=== PATIENT | female | born 1990 | race Caucasian/White ===

== ENCOUNTER 2021-07-07 21:13 | Emergency (ER) | payer OTHER, SELFPAY ==
--- NOTE | ~2021-07-07 | CT_ITS ---
EXAMINATION: CT abdomen pelvis wo con EXAM DATE: 07/07/2021 23:37 INDICATION: R/O Urolithiasis. Left Flank Pain X 9 Hrs. TECHNIQUE: Spiral CT of the abdomen and pelvis was performed without contrast. Axial, coronal and sag ittal images were reviewed. The dose-length product (DLP) for this examination was 1329.90 mGy-cm. The exposure was tailored according to patient size (auto mA exposure control), and iterative reconst ruction (ASIR) was used as additional dose reduction technique. There is no prior study for comparis on. FINDINGS: Bilateral kidney medullary regions are mildly dense, mild nephrocalcinosis. No ureteral sto iftikhar or hydronephrosis. Indeterminate 1.2 cm right renal lesion statistically most likely hemorrhagic cyst. MRI without and with contrast of the abdomen should be considered. The uterus is unremarkable. The bladder is unremarkable. The liver, spleen, adrenal glands and pancreas are unremarkable. Gal lbladder is unremarkable. No biliary obstruction. There is no retroperitoneal or pelvic lymphadenop athy. The appendix is not positively visualized. There is no pericecal inflammatory change to suggest appe ndicitis. Surgical changes along the greater curvature of the stomach which could be gastric sleeve . There is expected amount of colonic stool. No free intraperitoneal gas. The heart is normal in size. There are no pericardial or pleural effusions. The lung bases are unremarkable. There are n o osteoblastic or osteolytic lesions identified. IMPRESSION: 1. Bilateral medullary nephrocalcinosis. 2. Indeterminate right renal lesion; consider MRI abdomen without and with contrast. 3. No acute intra-abdominal findings. Reviewed, dictated and finalized at location A. [facility] IMPRESSION: 1. Bilateral medullary nephrocalcinosis. 2. Indeterminate right renal lesion; consider MRI abdomen without and with con trast. 3. No acute intra-abdominal findings.
[2021-07-07 21:33] VITALS: BP 120/86; PULSE 104; RESP 18; TEMP 37; O2SAT 98
[2021-07-07] MEDS: KETOROLAC 30 MG/ML VIAL (*BKC) IV PUSH (22:41)
[2021-07-07 22:42] LABS: Basophils Absolute Auto 0.1 K/mm3 (0.0-0.1); Basophils Percent Auto 0.5 % (0.2-1.2); Eosinophils Percent Auto 0.3 % (0-4.4); Hematocrit 38.6 % (37.0-47.0); Hemoglobin 12.4 g/dL (12.0-15.0); Immature Granulocyte Absolute 0.02 K/mm3 (0.00-0.031); Immature Granulocyte Percent A 0.2 % (0-0.5); Lymphocytes Absolute Auto 2.78 K/mm3 (0.9-3.2); Lymphocytes Percent Auto 27.9 % (18.3-44.2); Mean Corpuscular HGB Conc 32.1 g/dl (32-36); Mean Corpuscular Hemoglobin 27.4 pg (26-34); Mean Corpuscular Volume 85.2 fl (80-100); Mean Platelet Volume 9.4 fl (7.4-10.4); Monocytes Absolute Auto 0.8 K/mm3 (0.1-0.6); Monocytes Percent Auto 8.3 % (2.6-8.5); Neutrophils Absolute Auto 6.3 K/mm3 (1.3-6.7); Neutrophils Percent Auto 62.8 % (45.5-73.1); Platelet Count Result 404 k/mm3 (150-375); Red Blood Count 4.53 M/mm3 (4.2-5.4); Red Cell Distribution Width 13.2 % (11.5-14.5)
[2021-07-07] MEDS: SODIUM CHLORIDE 0.9% IV 1,000 ML 999 ML IV CONT (22:42)
[2021-07-07] MEDS: ONDANSETRON INJ 4 MG/2 ML VIAL IV PUSH (22:42)
--- NOTE | 2021-07-07 22:43 | ED.FEMALEGU ---
HPI - Female Genitourinary General Chief complaint: Urogenital-Female Stated complaint: flank pain Time Seen by Provider: 07/07/21 22:24 History of Present Illness HPI Narrative: 31-year-old female presents the emergency room with acute onset of left flank pain and difficulty urinating. Patient states pain began about 3:00 this afternoon and is radiating around to anterior torso. No history of kidney stones. Pain is associated with nausea. Related Data Allergies Allergy/AdvReac Type Severity Reaction Status Date / Time No Known Allergies Allergy Unverified 04/09/16 21:04 Review of Systems Review of Systems: CONSTITUTIONAL: Denies fever, chills, or sweats. EYES: Denies visual changes, redness, or discharge. ENT: Denies rhinorrhea, congestion, sore throat, or otalgia. CARDIOVASCULAR: Denies chest pain, palpitations, or edema. RESPIRATORY: Denies cough or dyspnea. GASTROINTESTINAL:Reports left flank pain and nausea. GENITOURINARY: Reports difficulty urinating. SKIN: Denies rash or itching. MUSCULOSKELETAL: Denies back pain, joint pain, or myalgia. NEUROLOGIC: Denies headache, numbness, dizziness, or weakness. PSYCHIATRIC: Denies anxiety or depression. Exam Narrative: GENERAL: Well-appearing, well-nourished, and in no acute distress. HEAD: Normocephalic, atraumatic. EYES: PERRLA and EOMI. ENT: Nares clear, no rhinorrhea or epistaxis. Mucous membranes moist. NECK: Supple. No adenopathy or masses. CHEST: Clear to auscultation. No respiratory distress. No wheezes rales or rhonchi HEART: Regular rate and rhythm. No murmur heard. Normal peripheral pulses. ABDOMEN: Soft, nontender, nondistended, normal active bowel sounds. Right CVA tenderness EXTREMITIES: Normal range of motion. No edema. SKIN: Warm, dry, no rash. NEURO: No focal deficits. Alert and oriented x3. PSYCH: Normal mood and affect. Course Course Emergency Course: 31-year-old female complaining of left flank pain with acute onset of this afternoon with accompanying nausea. Vital signs have been within normal limits slightly tachycardic. Given a liter of fluid Toradol and Zofran for suspected kidney stone. CBC CMP were within normal limits UA demonstrated bacteria. CT scan demonstrated no obstructing renal stones in either kidney. There was discussion of a 1.2cm lesion noted in the right kidney recommend MRI to rule out hemorrhagic cyst versus mass. Vital Signs Vital signs: Vital Signs Temperature 37.0 C 07/07/21 21:33 Pulse Rate 104 H 07/07/21 21:33 Respiratory Rate 18 07/07/21 21:33 Blood Pressure 120/86 07/07/21 21:33 Pulse Oximetry 98 07/07/21 21:33 Temperature 37.0 C 07/07/21 21:33 Pulse Rate 104 H 07/07/21 21:33 Respiratory Rate 18 07/07/21 21:33 Blood Pressure 120/86 07/07/21 21:33 Pulse Oximetry 98 07/07/21 21:33 MDM - Female Genitourinary MDM Narrative Medical decision making narrative: CT demonstrated no acute findings in the left kidney. Right kidney showed a nonobstructed kidney stone as well as a 1.2 cm mass in the upper kidney. Radiologist recommends MRI further evaluate for either hemorrhagic cyst or solid mass. Patient's UA was positive for bacteria and WBCs. Medical Records Attestation: I reviewed the patient's medical records. Lab Data Attestation: I reviewed the patient's lab results. Result diagrams: 07/07/21 22:37 07/07/21 22:37 Labs: Lab Results 07/07/21 07/07/21 07/07/21 Range/Units 22:37 22:37 22:50 WBC 10.0 (4.5-10.0) K/mm3 RBC 4.53 (4.2-5.4) M/mm3 Hgb 12.4 (12.0-15.0) g/dL Hct 38.6 (37.0-47.0) % MCV 85.2 (80-100) fl MCH 27.4 (26-34) pg MCHC 32.1 (32-36) g/dl RDW 13.2 (11.5-14.5) % Plt Count 404 H (150-375) k/mm3 MPV 9.4 (7.4-10.4) fl Immature Gran % (Auto) 0.2 (0-0.5) % Neut % (Auto) 62.8 (45.5-73.1) % Lymph % (Auto) 27.9 (18.3-44.2) % [place] % (Auto) 8.3 (2.6-8.5) % Eos % (Auto) 0.
[2021-07-07 22:59] LABS: Alanine Aminotransferase 20 U/L (4-35); Alkaline Phosphatase 70 U/L (38-126); Anion Gap 11 mmol/L (8-16); Aspartate Amino Transferase 32 U/L (14-36); Bilirubin,Total 0.6 mg/dL (0.2-1.3); Blood Urea Nitrogen 12 mg/dL (7-17); Calcium 9.8 mg/dL (8.4-10.2); Carbon Dioxide 25 mmol/L (22-30); Chloride 98 mmol/L (98-107); Estimated CRCL calculation 104 ml/min; Estimated Glomerular Filt Rate > 60; Glucose 89 mg/dL (65-110); Potassium 3.5 mmol/L (3.4-5.0); Sodium 134 mmol/L (137-145)
[2021-07-07 23:11] LABS: Add Urine Microscopic? YES; Appearance Urine Cloudy (Clear); Bacteria Urine 4+ /hpf; Bilirubin Urine Negative (Negative); Blood Urine Negative (Negative); Color Urine Yellow (Yellow); Glucose Urine UA Negative (Negative); Ketones Urine 1+ mg/dL (Negative); Leukocyte Esterase Ur Negative LEU/UL (Negative); Mucus Urine Few /lpf; Nitrate Urine Negative (Negative); Protein Urine 1+ mg/dL (Negative); Specific Grav Ur 1.029 (1.001-1.035); Squamous Epithelial Cell Urine Many /hpf (Few); Urobilinogen Urine Negative mg/dL (<2.0)
[2021-07-07 23:22] LABS: Pregnancy On Board Control Positive; Urine Pregnancy Test Negative
[2021-07-08 00:34] VITALS: RESP 14
== END 2021-07-08 00:30 | disposition home or self-care (01) ==
PROVIDERS: Emergency Provider Nurse Practitioner Family; PCP Nurse Practitioner Family
DX: N39.0 Urinary tract infection, site not specified (principal); E83.59 Other disorders of calcium metabolism; N29 Other disorders of kidney and ureter in diseases classified elsewhere; N28.9 Disorder of kidney and ureter, unspecified
CPT/HCPCS: 36415; 74176; 80053; 81001; 81025; 85025; 87086; 87088; 96361; 96374; 96375; 99284; J1885; J2405; J7030